=== PATIENT | female | born 1935 | race Caucasian/White ===

== ENCOUNTER 2024-09-23 09:31 | Outpatient (RCR) | payer MEDICARE, SELFPAY ==
[2024-09-23 10:21] VITALS: BP 160/54; PULSE 62; RESP 18; TEMP 36.2
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
--- NOTE | 2024-09-25 10:27 | WC ---
PHOTO 09/23/24
--- NOTE | 2024-09-25 10:31 | WC ---
PHOTO 09/23/24 LE
== END 2024-10-11 23:59 | disposition home or self-care (01) ==
LOC: WC 09:31
PROVIDERS: PCP Internal Medicine; Referring Provider Internal Medicine; Visit Provider Podiatrist
DX: I87.2 Venous insufficiency (chronic) (peripheral) (principal); L97.223 Non-pressure chronic ulcer of left calf with necrosis of muscle
CPT/HCPCS: 11043; 99214; G0463

== ENCOUNTER 2025-06-03 10:22 | Outpatient (CLI) | payer MEDICARE, SELFPAY ==
--- NOTE | 2025-06-03 10:00 | FLU_PTH ---
PATIENT: ASHLIE MARTINEZ LOC: [facility] U#:[id number] AGE/SX: 89/F ROOM: RE06/03/[address]: Dr. Beck Wei MD : [id number] BED: DIS: 06/03/2025 SPEC #: [id number] RECD: 06/03/25 10:15 STATUS: CARMEL REAnu #: [id number] OLY: 06/03/25 10:[address]: Beck Wei DEPT: CYTOLOGY RECD BY: Karl Ferrer ENTERED: 06/03/25 10:23 SP TYPE: Fluid OTHR DR: Dr. Jo-Ann Rivera MD Tissues: A - Thyroid gland, NOS Procedures: Special Stain Group II Cytospin Fluid Cytology Other HEADER OPERATION: Fine needle aspiration of left thyroid nodule PRE-OP DIAGNOSIS: Left thyroid nodule TISSUE SUBMITTED: A- Left thyroid nodule for cytology DIAGNOSIS CYTOLOGY A. Left thyroid, nodule, FNA (cytospin, smear x4): - Atypical cells of undetermined significance (TBS III). COMMENT Per recommendations and a clinician-approved plan, genomic testing (Afirma) has been submitted. Results will be reported in an addendum and faxed to the clinician. CYTOLOGY STUDY Slides are reviewed. CYTOLOGY GROSS A. Received is 30 ml of light-pink cytolyt with particles and 4 smears labeled with the patient's name and and designated per the requisition as Left lower thyroid nodule. Submitted for cytology and cytospin. Mr 06/03/2025 CPT: 97052 ADDENDUM ADDENDUM ADDENDUM ADDENDUM ADDENDUM ADDENDUM ADDENDUM ADDENDUM ADDENDUM ADDENDUM 06/18/2025 11:55 ADDENDUM 06/18/2025 11:55 ADDENDUM 06/18/2025 11:55 ADDENDUM 06/18/2025 11:55 ADDENDUM 06/18/2025 11:55 AFIRMA RESULTS REPORT - A RESULTS INTERPRETATION: The result of this 2.4 cm [place] III nodule A is Afirma [facility] benign, which suggests a low risk of cancer of approximately 4%. Treatment like a cytologically benign nodule may be appropriate, including clinical correlation. Afirma XA is not performed on [facility] Benign nodules. TERT promoter region analysis is not performed on [facility] benign nodules. Please see complete report in e-chart or EMR
== END 2025-06-03 23:59 | disposition home or self-care (01) ==
PROVIDERS: PCP Internal Medicine; Referring Provider Surgery; Visit Provider Surgery
DX: E04.1 Nontoxic single thyroid nodule (principal)
CPT/HCPCS: 88108; 88161; 88305; 88313